=== PATIENT | female | born 1980 | race Caucasian/White ===

== ENCOUNTER 2019-10-29 16:21 | Emergency (ER) | payer MEDICAID, OTHER ==
[~2019-10-29] VITALS: Ht 160 cm; Wt 54.2 kg
--- NOTE | 2019-10-29 16:47 | NUR ---
Pt here for abd pain with nausea and vomitting at home. Per pt has not been able to hold food down and drink fluids. Pt reports she uses cannibis for nausea at home rather than drinking etoh. Pt is anxious and requiring soothing tecniques to help calm down. Pt unable to provide ua. Pt had piv placed and fluids started.
[2019-10-29] MEDS ORDERED: ONDANSETRON 2MG/ML, 2ML IVPush ONE (17:00)
[2019-10-29] MEDS ORDERED: SODIUM CHLORIDE 0.9% 1,000ML IVBOLUS ONE (17:00)
[2019-10-29] MEDS ORDERED: ONDANSETRON 2MG/ML, 2ML ONE (17:02)
[2019-10-29 17:05] LABS: BASOPHILS # (AUTO) 0.04 x10^3/uL (0-0.1); BASOPHILS % (AUTO) 1 % (0-1); EOSINOPHILS # (AUTO) 0.12 x10^3/uL (0-0.4); EOSINOPHILS % (AUTO) 1 % (1-7); LYMPHOCYTES # (AUTO) 2.02 x10^3/uL (1-3.4); LYMPHOCYTES % (AUTO) 21 % (22-44); MD NO; MEAN CORPUSCULAR HEMOGLOBIN 30.8 pg (27.0-34.8); MEAN CORPUSCULAR HGB CONC 33.6 g/dL (32.4-35.8); MEAN CORPUSCULAR VOLUME 91.7 fL (80-100); MEAN PLATELET VOLUME 8.7 fL (7.4-10.4); MONOCYTES # (AUTO) 0.69 x10^3/uL (0.2-0.8); MONOCYTES % (AUTO) 7 % (2-9); NEUTROPHILS # (AUTO) 6.68 x10^3/uL (1.8-6.8); NEUTROPHILS % (AUTO) 70 % (42-75); PLATELET COUNT 405 x10^3/uL (130-400); RED BLOOD COUNT 5.06 x10^6/uL (3.82-5.3); RED CELL DISTRIBUTION WIDTH 13.5 % (9.6-15.2)
--- NOTE | 2019-10-29 17:08 | NUR ---
Pt medicated per emar.
[2019-10-29 17:14] LABS: ALBUMIN 3.9 g/dL (3.4-5.0); ANION GAP 8 mmol/L (5-15); CALCIUM 8.5 mg/dL (8.5-10.1); CHLORIDE 106 mmol/L (98-107)
[2019-10-29 17:19] LABS: ALANINE AMINOTRANSFERASE 34 U/L (12-78); ALKALINE PHOSPHATASE 57 U/L (45-117); BILIRUBIN,TOTAL 1.3 mg/dL (0.2-1.0); TOTAL PROTEIN 7.5 g/dL (6.4-8.2)
[2019-10-29] MEDS ORDERED: FAMOTIDINE 20 MG/2 ML IVPush ONE (17:30)
[2019-10-29] MEDS ORDERED: MAALOX/HYOSCYAMINE/LIDOCAINE 45 ML BTL PO ONE (17:30)
[2019-10-29] MEDS ORDERED: PANTOPRAZOLE 40 MG IV ONE (17:35)
[2019-10-29] MEDS ORDERED: MAALOX/HYOSCYAMINE/LIDOCAINE 45 ML BTL ONE (17:35)
[2019-10-29] MEDS ORDERED: FAMOTIDINE 20 MG/2 ML ONE (17:46)
--- NOTE | 2019-10-29 18:09 | NUR ---
PT LAYING ON SIDE IN BED, RESPIRATIONS EVEN AND UNLABORED ON RA. IVF INFUSING PER EMAR. AT BEDSIDE. PT DENIES PAIN AT THIS TIME. UA SENT.
[2019-10-29 18:26] LABS: CULTURE INDICATED? YES; MICROSCOPIC INDICATED
--- NOTE | 2019-10-29 18:29 | NUR ---
PT IN IMAGING AT TIME THAT POTASSIUM SENT TO ED BY PHARM. AWAITING RETURN TO ED.
[2019-10-29] MEDS ORDERED: POTASSIUM CHLORIDE 10% 40 MEQ/30 ML UDC PO ONE (18:30)
--- NOTE | 2019-10-29 19:14 | NUR ---
PT LAYING BACK IN BED, RESPIRATIONS EVEN AND UNLABORED ON RA. NAD NOTED AT THIS TIME. REQUESTS 3RD LITER. AWAITING ORDER.
--- NOTE | 2019-10-29 19:19 | NUR ---
PT CHART UP FOR RECHECK.
--- NOTE | 2019-10-29 20:08 | NUR ---
PT LAYING BACK IN BED SPEAKING WITH PARTNER, WHO IS AT THE BEDSIDE. NAD NOTED AT THIS TIME. PER PARTNER, PT VOMITED WHILE RN OUT OF ROOM. SIDE RAILS UP, CALL LIGHT IN REACH. AWAITING ERMD RECHECK.
[2019-10-29] MEDS ORDERED: PROCHLORPERAZINE 5 MG/ML, 2ML ONE (20:13)
[2019-10-29] MEDS ORDERED: SODIUM CHLORIDE 0.9%, 500ML IVBOLUS ONE (20:30)
[2019-10-29] MEDS ORDERED: PROCHLORPERAZINE 5 MG/ML, 2ML IVPush ONE (20:30)
[2019-10-29 20:46] VITALS: BP 119/81
== END 2019-10-29 21:37 | disposition home or self-care (01) ==
LOC: ED 19:25
DX: R11.2 Nausea with vomiting, unspecified (principal); R19.7 Diarrhea, unspecified; E86.0 Dehydration; E87.6 Hypokalemia
CPT/HCPCS: 36415; 76700; 80053; 81001; 83690; 84703; 85025; 87086; 93005; 96361; 96374; 96375; 99284; J0780; J2405; J3490; J7030; J7040